=== PATIENT | female | born 1950 | race Caucasian/White ===

== ENCOUNTER → 2018-03-07 01:20 | Outpatient (CLI) | payer MEDICARE, OTHER, SELFPAY ==
[2018-03-07 08:33] LABS: Cholesterol 263 mg/dL (50-200); HDL Cholesterol 55 mg/dL (40-60); LDL CHOLESTEROL 180 mg/dL (<100); Triglyceride 152 mg/dL (30-150)
[2018-03-07 08:54] LABS: Vitamin D 25 Total 33.5 ng/ml (30-100)
== END ==
PROVIDERS: PCP Internal Medicine; Visit Provider Obstetrics & Gynecology
DX: R73.09 Other abnormal glucose (principal); E78.00 Pure hypercholesterolemia, unspecified; M85.88 Other specified disorders of bone density and structure, other site; Z91.89 Other specified personal risk factors, not elsewhere classified
CPT/HCPCS: 36415; 80061; 82306; 83721; 83036

== ENCOUNTER → 2018-03-08 08:45 | Outpatient (CLI) | payer MEDICARE, OTHER, SELFPAY | PROVIDERS: PCP Internal Medicine; Visit Provider Student in an Organized Health Care Education/Training Program | DX: M67.912 Unspecified disorder of synovium and tendon, left shoulder (principal); T84.84XA Pain due to internal orthopedic prosthetic devices, implants and grafts, initial encounter; M75.102 Unspecified rotator cuff tear or rupture of left shoulder, not specified as traumatic | CPT/HCPCS: 99214 ==

== ENCOUNTER → 2018-03-14 00:44 | Outpatient (CLI) | payer MEDICARE, OTHER, SELFPAY ==
--- NOTE | 2018-03-14 14:18 | DI.REPORT_ITS ---
SYMPTOM/DIAGNOSIS: SCREENING, Z12.31 MAMMOGRAM: Mammograms were interpreted according to the usual protocol including computer analysis with CAD system, tomosynthesis and C view imaging. The breast tissue is of moderate radiodensity. There is no evidence of a mass. There are no suspicious calcifications. There has been no significant interval change when compared with previous images. SUMMARY: No evidence of malignancy, Category 1-B. Yearly screening mammography is recommended. SA ASSESSMENT OF FINDINGS: Negative. Category 1. Patient will receive a letter notifying them of these results. BI-RADS category B. There are scattered areas of fibroglandular density.
== END ==
PROVIDERS: PCP Internal Medicine; Visit Provider Obstetrics & Gynecology
DX: Z12.31 Encounter for screening mammogram for malignant neoplasm of breast (principal)
CPT/HCPCS: 77063; 77067

== ENCOUNTER 2018-03-26 14:30 | Outpatient (RCR) | payer MEDICARE, OTHER, SELFPAY ==
--- NOTE | 2018-03-15 09:19 | IE_ITS ---
Date: 03/15/18 Referring: ALISHA Todd (Dr. Matos's Office) [place] Diagnosis: Rotator Cuff repair, tendonitis, strength and conditioning P.T. Diagnosis: Same SUBJECTIVE: Patrizia complains of occasional discomfort throughout the (L) proximal humerus. This is generally after aggravating it such as playing golf, particularly when hitting the ball. This usually lasts for a few days and she responds well to icing. Her recent episode lasted greater than 5 days so she got an appt with Dr. Matos's office. It then resolved after a few days. She is currently pain free. History of Present Illness: She is a 67 year old female well known to me in the past with a rotator cuff repair to her (R) shoulder and a cuff tendinopathy of her (L) shoulder. She has had some episodic (L) shoulder issues and was seen by ALISHA Todd recently and referred to PT. Pain Ratin/10 currently and when symptomatic a 3/10 Pain Location: Throughout the lateral aspect of the proximal humerus. Prior Level of Function: (I) with use of her (L) UE without pain. Previous Treatment: PT and a cuff repair to the (R) Shoulder. 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 Falls in the last year: __X__ No ____Yes - How many? ____ - (if over 2, balance SM needs to be completed) Reported hospitalizations in the last year - __X__ No ____ Yes - Dates of admission/reason: Medications: Advil PRN Quality of Life: __X__ Excellent Standardized Measures: DASH score: __14%__ OBJECTIVE: Posture: She has a mild thoracic kyphosis, protracted scapula and negative lateral shift. Observation: (behavior, atrophy, skin color, etc.) Pleasant with no abnormal pain behavior noted. Expresses some concern about her (L) shoulder pain re- occurring. Palpation: she is non tender over the ACSC joints subacromially and mild tenderness over the greater tuberosities of the humeri (L) > (R). Edema: Negative effusion, erythema or warmth ROM: Her cervical spine motion is moderately limited within an articular pattern but without pain on movement or reproduction of symptoms. Her rotation is 60* and side bending at 45 to 50*. Her shoulder motion feels good with good initiation of flexion abduction without painful arc or scapular substitution. Her flexion on the (R) is approximately 155* , abduction 145*. Her (R) thumb is at the T9 level when reaching behind her back. Her (L) shoulder motion is actively 170* with flexion and abduction. Her (L) thumb is 1 inch above her (R) when reaching behind her back. She is (R) hand dominant. AA ROM in the supine position shows full ROM of the (L) shoulder with ER at 100*. On the (R) ER is at 90* and flexion/abduction is at 145-150* with some mild end range drawing suprahumerally. Her elbow and forearm are full and painless with movement and she has some limitation with her PIP joints particularly index and middle fingers at -10 to 15*. She has soft tissue swelling and Heberden nodes throughout the distal phalanges. Joint Accessory Motion: She has hypomobility with PA glides to the thoracic spine. Strength: Tolerates good resistance to the cuff with some subtle weakness with scaption and pure abduction on the (R) greater than (L). She also has weakness for (R) forearm supination and a small lawanda deformity, negative on the (L). Special Tests: She clears with the Mendoza Izaiah Impingement maneuver. Treatment: Tx today consisted of the evaluation along with production of tx program. IE: [id number] Direct treatment time: 60 minutes Total treatment time: 60 minutes ASSESSMENT: Patient is a 67-year-old female, referred for PT services with the diagnosis of tendinopathy of her (L) shoulder. Patient presents with clinical signs and symptoms consistent with dx , as demonstrated by the following impairment level findings: some subtle weakness to the supraspinatus and infraspinatus mechanism resulting in a probable partial tear. Impairments are contributing to the following functional limitations: Intermittent (L) glenohumeral and proximal humeral discomfort after specific traumatic activities. She responds to time and icing etc.. Patient is assessed as: __X__ Low 63283 ____ Moderate 56366 ____ High 37643 complexity, based on the following: History: Intermittent (L) shoulder discomfort due to a partial cuff tear resulting in a tendinopathy. Examination: Reveals minimal functional impairment currently but when symptomatic it creates difficulty with activities using her arm at or above shoulder level. Presentation: X Stable Decision-Making: Low complexity 14 % Disability based on DASH __X__ Patient requires skilled PT intervention to remediate the above functional limitations to return to: __X__ Improve QOL Prognosis: __X__ Good G-Codes: Patient's primary functional limitation is in the category of: __X__ Carrying, moving and handling objects: [id number] Projected goal: __X__ Carrying, moving, and handling objects [id number] STG: __6__ weeks. 1. Develop an (I) scapular stabilization program and core strengthening to try to minimize re-occurrence of her (L) shoulder pain as well as trying to minimize her everyday activities. LTG: __12__ weeks. __X__ Improve QOL. PLAN: Session today consisted of the evaluation along with pt education. We will see her next week for a session or two and develop a good scap stabilization/ core strengthening program and give her the option of coming into the clinic a few times per week for a supervised program verses a HEP. She will discuss this with us next week. Thank you for this referral. Please do not hesitate to contact me with any questions or concerns regarding this patient's plan of care. ALISHA Todd please sign below if you are in agreement with this patient's plan of care,
--- NOTE | 2018-03-18 12:16 | PTTR_ITS ---
DATE: 03/18/18 SUBJECTIVE: Pt reports having no pain but noticeable weakness. Observes that she needs to use both hands to handle a jug of milk. Reports that she has limited her UE use, due to fear of recurrent pain. OBJECTIVE: Therapeutic procedures ([id number]). * X See flow sheet: Created program for bilateral UE strengthening with scapular stabilization including both open and closed chain exercises. * X Provided skilled instruction in proper exercise performance: Pt required min verbal cuing to activate lower trap, correctly position bilateral scapula. Had extreme difficulty maintaining activation. * X Provided skilled manual cues to facilitate proper muscle recruitment and/ or movement pattern: Pt required mod manual cues for proper muscle recruitment. Direct treatment time: 30 minutes Total treatment time: 30 minutes
--- NOTE | 2018-03-20 14:40 | PTTR_ITS ---
DATE: 03/20/18 SUBJECTIVE: Pt reports that her shoulders were pretty tired after last session , but not painful. Expresses an interest in progressing to [facility] here in clinic for 4-6 weeks, then graduating to home program. OBJECTIVE: Therapeutic procedures ([id number]). * X See flow sheet: Progressed pt's UE strengthening and scapular stabilization program, adding bodyblade and weights with mirror to enhance proprioceptive feedback. See flow sheet for details. * X Provided skilled instruction in proper exercise performance: Pt requires min cueing to maintain proper scapula position. Pt repeatedly questions whether she has achieved proper position. * X Provided skilled manual cues to facilitate proper muscle recruitment and/ or movement pattern: Pt requires min tactile cueing to recruit low trap, sammi. when in GH flexion as with ball vs wall exercise. * X Other: Began instructing pt in exercise setup, working towards [facility]. Pt will be seen by PT/JEWELRY FACER until she is comfortable with all exercises. Direct treatment time: 30 minutes Total treatment time: 30 minutes
--- NOTE | 2018-03-26 15:50 | PTTR_ITS ---
DATE: 03/26/18 SUBJECTIVE: Pt doing well. No increase in pain with increasing activity. OBJECTIVE: Therapeutic procedures ([id number]). * X See flow sheet: For scapular stabilization, light rotator cuff strengthening, lower trap activation and general * X Provided skilled instruction in proper exercise performance: * X Provided skilled manual cues to facilitate proper muscle recruitment and/ or movement pattern: * X Other: Instruct in equipment set up and documentation of her exercises as she will progress to [facility] next session. She understands to ask questions as they arise. Direct treatment time: 30 minutes Total treatment time: 30 minutes Cynthia Tao, [employer]
== END 2018-04-05 23:59 | disposition home or self-care (01) ==
LOC: PT 14:30
PROVIDERS: PCP Internal Medicine; Referring Provider Student in an Organized Health Care Education/Training Program; Visit Provider Student in an Organized Health Care Education/Training Program
DX: M65.812 Other synovitis and tenosynovitis, left shoulder (principal)
CPT/HCPCS: 97110; 97161

== ENCOUNTER → 2018-04-16 07:47 | Outpatient (BNVA) | payer MEDICARE, OTHER, SELFPAY | PROVIDERS: PCP Internal Medicine; Visit Provider Student in an Organized Health Care Education/Training Program | DX: T84.84XA Pain due to internal orthopedic prosthetic devices, implants and grafts, initial encounter (principal); M25.571 Pain in right ankle and joints of right foot; I10 Essential (primary) hypertension ==

== ENCOUNTER 2018-04-16 11:19 | PSDC | payer MEDICARE, OTHER, SELFPAY ==
[2018-04-16 11:51] VITALS: BP 146/92; PULSE 77; RESP 16; TEMP 36.4; O2SAT 98
--- NOTE | 2018-04-16 12:18 | W.PM.HP.N ---
Date of service: 04/16/18 Time of Service: :18 Assessment and Plan (1) Painful orthopaedic hardware: Current visit: Yes Status: Acute Painful right ankle hardware. Proceed with removal of distal right ankle screw. History of Present Illness Chief Complaint: Right Prominent Ankle Hardware Narrative: Patrizia has had previous right ankle surgery for a fracture. She has a prominent screw which gets irritated on shoe wear and with activity. There is no erythema. No pain without palpation or pressure. No numbness or tingling. PFSH Family History Mother Cerebrovascular accident Father Myocardial infarction Medical History AV heart block Benign hypertension Clostridium difficile infection Social History Smoking/Tobacco Use Status: Never Surgical History Appendectomy Pacemaker (12/20/17) Rotator Cuff Repair (05/20/15) Tonsillectomy and adenoidectomy Meds Home Medications Medication Instructions Recorded Confirmed Type finasteride [Propecia] 1 mg PO qother day 11/28/12 04/16/18 History acetaminophen [Tylenol] 1,000 mg PO PRN PRN 07/24/14 04/16/18 History lorazepam 0.25 - 0.5 tab PO HS PRN #30 tab 05/03/16 04/16/18 Clinic betamethasone, augmented 50 gm TOPICAL BID #1 script 01/26/17 04/16/18 Clinic estradiol 1 mg PO DAILY #90 tab-cap 01/26/17 04/16/18 Clinic magnesium amino acid chelate 150 mg PO BID 03/05/18 04/16/18 History vit A and D3 in cod liver oil [Cod 1 ea PO BID 03/05/18 04/16/18 History Liver Oil Softgel] cholecalciferol (vitamin D3) 400 unit PO DAILY 04/15/18 04/16/18 History [Vitamin D3] cholecalciferol (vitamin D3) PO DAILY 04/16/18 History [Vitamin D3] Allergies Allergy/AdvReac Type Severity Reaction Status Date / Time oxycodone [Oxycodone] AdvReac Mild Nausea Verified 04/16/18 11:44 meperidine AdvReac Unknown Verified 04/16/18 11:44 Exam Narrative Exam Narrative: Patrizia is well appearing. AAOx3. NAD. Heart RRR. Chest CTAB. RLE has a prominent distal screw which is marked on the skin. No surrounding erythema. No pain with ROM. SILT SP/DP/Tib.
--- NOTE | 2018-04-16 12:24 | W.PM.DSUDISC ---
Discharge Plan Disposition Patient Disposition: HOME Condition: Good Discharge Details Attending Provider: Munir Matos Primary Care Provider: Afsaneh Drake Home Meds and New Rx's Prescriptions: Continue finasteride [Propecia] 1 MG tablet 1 mg PO qother day RF: 0 lorazepam 0.5 MG tablet 0.25 - 0.5 tab PO HS PRNQty: 30 RF: 0 betamethasone, augmented 50 GM cream 50 gm Topical BID Qty: 1 RF: 3 estradiol 1 MG tablet 1 mg PO DAILY Qty: 90 RF: 3 vit A and D3 in cod liver oil [cod liver oil] 1 EACH capsule 1 ea PO BID RF: 0 magnesium amino acid chelate 100 MG tablet 150 mg PO BID RF: 0 acetaminophen [Tylenol] 325 MG tablet 1,000 mg PO PRN PRNRF: 0 cholecalciferol (vitamin D3) [Vitamin D3] 400 unit Tablet 400 unit PO DAILY RF: 0 cholecalciferol (vitamin D3) [Vitamin D3] 4,000 unit Capsule PO DAILY RF: 0 Discharge Instructions Additional Instructions: Activity: You may bear weight as tolerated. You should avoid any uneven ground or descents. Medications: You should take Ibuprofen and Tylenol for pain control. You may apply ice. Dressing: The initial dressing may be removed after 48 hours. It may then be replaced by a bandaid. Follow-up: 7-10 days Activity:: Activity as Tolerated Remove Dressings/Wound Care:: 48 hours Shower/Bathe:: 48 hours Activity:: Elevate Equipment/Supplies:: No Equipment Needed Diet:: Regular Discharge Orders Discharge Orders: Discharge Order (Routine); Ordered 04/16/18 Ordered By: Munir Matos Discharge Data Discharge Physician: Munir Matos DS: Diagnosis Discharge Diagnosis (1) Painful orthopaedic hardware: Status: Acute
[2018-04-16] MEDS: Lactated Ringers 1,000 ML 80 ML IV (12:27)
--- NOTE | 2018-04-16 13:09 | DI.RAD_ITS ---
SYMPTOM/DIAGNOSIS: HARDWARE REMOVAL C-ARM: Fluoroscopy Time: 1.5 sec 0.07 mGy Fluoroscopy was provided for Dr. Matos in the OR. Please see procedure note for details.
[2018-04-16 13:26] VITALS: BP 131/84; PULSE 72; RESP 16; TEMP 36.7; O2SAT 95
--- NOTE | 2018-04-16 17:35 | ROE_ITS ---
DATE OF PROCEDURE: April 16, 2018 PREOPERATIVE DIAGNOSIS: Painful orthopedic hardware of the right ankle. POSTOPERATIVE DIAGNOSIS: Same. SURGERY: Removal of screw from right ankle. SURGEON: Munir Matos M.D. ANESTHESIA: Monitored Anesthesia Care. ESTIMATED BLOOD LOSS: 0 COMPLICATIONS: None. DISPOSITION: The patient was awakened from anesthesia and taken to the same-day surgery area in a st able condition. INDICATION FOR PROCEDURE: Patrizia is a 67-year-old who suffered a right ankle fracture. This was repa ired with a standard 130 tubular plate over the distal fibula. She had good results with her recover y but continued to have some irritation from the most distal screw. The edge of the plate and the di stal screw were prominent. However after a long discussion with Patrizia, she felt that she was unable to modify her shoe wear any further and would like to have that distal screw removed. I discussed th e possible options of taking out the whole plate versus the screw and she desired to proceed with jus t the screw only. I reviewed the risks of the procedure to include bleeding, infection, pain, stiffn ess, damage to nerves and vessels, fracture. Despite these risks, she elected to proceed. PROCEDURE DESCRIPTION: Patrizia was greeted in the preoperative holding area. Her identity was confirm ed and the correct side was identified and marked. The consent was reviewed with the patient and sig flora. The history and physical was updated. The patient was taken back to the operating room and migue jonatan in a supine position. A bump was placed underneath her right hip. Prophylactic antibiotics in t he form of Cefazolin were given. The screw was easily palpated and marked on the skin. A time-out w as performed for safe surgery. Approximately 1 cm incision was made overlying the screw head. Deep dissection was carried down to t he screw head. Once the screw was palpated a dental pick was used to remove any remnant scar tissue from within the screw itself. The screwdriver for the 3.5 mm screw was inserted without difficulty a nd the screw was removed. An x-ray was used to confirm appropriate positioning and there has been no change in the plate positioning with removal of the screw. The wound was then thoroughly irrigated. The skin was closed with a single nylon suture. The wound was dressed with a Xeroform followed by 4x4's and a Tegaderm. Prior to the closure the wound was injected with 0.5% Bupivacaine. She was tr ansferred to the same-day surgery area in a stable condition.
== END 2018-04-16 13:49 | disposition home or self-care (01) ==
PROVIDERS: PCP Internal Medicine; Visit Provider Student in an Organized Health Care Education/Training Program
PROC: (CPT 20680; principal; 2018-04-16 13:00)
DX: T84.84XA Pain due to internal orthopedic prosthetic devices, implants and grafts, initial encounter (principal); M25.571 Pain in right ankle and joints of right foot; I10 Essential (primary) hypertension
CPT/HCPCS: 20680; 76000; NC; J2405

== ENCOUNTER → 2018-04-24 13:18 | Outpatient (BNVA) | payer MEDICARE, OTHER, SELFPAY | PROVIDERS: PCP Internal Medicine; Referring Provider Internal Medicine; Visit Provider Student in an Organized Health Care Education/Training Program | DX: T84.84XD Pain due to internal orthopedic prosthetic devices, implants and grafts, subsequent encounter (principal) ==

== ENCOUNTER 2019-05-02 01:25 | Outpatient (CLI) | payer MEDICARE, OTHER, SELFPAY ==
--- NOTE | 2019-05-02 08:47 | DI.MAMMO_ITS ---
EXAM: MAMMO SCREENING CLINICAL HISTORY: hx breast lump, screening z12.31. TECHNIQUE: Mammograms were interpreted according to the usual protocol including computer analysis w [employer] CAD system, tomosynthesis and C-view imaging. FINDINGS: The breasts are of moderate density with fairly symmetrical distribution of fibroglandular tissue. N o dominant mass or clumped microcalcification is identified in either breast. A grouping of benign-ap pearing acinar microcalcifications and macrocalcifications are seen in the central superior portion o f the right breast, unchanged from previous examination of March 2018. No other significant change is seen in either breast. IMPRESSION: No specific evidence of malignancy this time. Routine screening examinations are suggested at yearly intervals in this age group according to the ACS ACR guidelines. Category 1. Breast density category B. BI-RADS Cat 1 - Negative. Breast Density - Category B - Scattered areas of fibroglandular density.
== END 2019-05-02 01:45 ==
PROVIDERS: PCP Internal Medicine; Visit Provider Obstetrics & Gynecology
DX: Z12.31 Encounter for screening mammogram for malignant neoplasm of breast (principal); R92.0 Mammographic microcalcification found on diagnostic imaging of breast
CPT/HCPCS: 77063; 77067

== ENCOUNTER 2019-05-08 01:21 | Outpatient (CLI) | payer MEDICARE, OTHER, SELFPAY ==
[2019-05-08 11:56] LABS: Anion Gap 8.4 mmol/L (3-11); BUN 18 mg/dL (7-18); CO2 28.6 mmol/L (21.0-32.0); CREATININE 0.77 mg/dL (0.55-1.02); Calcium 8.8 mg/dL (8.5-10.1); Chloride 104 mmol/L (98-107); Glucose 98 mg/dL (70-100); Potassium 4.5 mmol/L (3.5-5.1); Sodium 141 mmol/L (136-145)
== END 2019-05-08 01:41 ==
PROVIDERS: PCP Internal Medicine; Visit Provider Internal Medicine
DX: I10 Essential (primary) hypertension (principal)
CPT/HCPCS: 36415; 80048

== ENCOUNTER 2019-12-22 10:51 | Outpatient (CLI) | payer MEDICARE, SELFPAY ==
--- NOTE | 2019-12-22 08:30 | DI.RAD_ITS ---
EXAM: XR ANKLE RT COMPLETE CLINICAL HISTORY: R ankle pain. TECHNIQUE: 2D digital imaging was performed. COMPARISON: CR RIGHT ANKLE COMPLETE from 02/14/2018 FINDINGS: BONES: No acute fracture or dislocation is present. There are side plates and screws seen in the dis lewis fibula. Since the prior examination, the most inferior screw has been removed. The orthopedic h ardware appears intact. JOINTS: The ankle mortise is normally aligned. SOFT TISSUE: Normal. IMPRESSION: No acute abnormality. DATA REPOSITORY: RADIATION DOSE DELIVERED:
== END 2019-12-22 11:11 ==
PROVIDERS: PCP Internal Medicine; Referring Provider Internal Medicine; Visit Provider Student in an Organized Health Care Education/Training Program
DX: M25.571 Pain in right ankle and joints of right foot (principal); Z47.89 Encounter for other orthopedic aftercare; M76.811 Anterior tibial syndrome, right leg; M70.61 Trochanteric bursitis, right hip; M15.2 Bouchard's nodes (with arthropathy); M79.645 Pain in left finger(s)
CPT/HCPCS: 20600; 99214; 73610; J1030

== ENCOUNTER 2020-04-29 01:50 | Outpatient (CLI) | payer MEDICARE, SELFPAY ==
--- NOTE | 2020-04-29 | DI.DEXA_ITS ---
EXAM: XR DEXA BONE DENSITY W/WO TIFFANIE CLINICAL HISTORY: OSTEOPENIA,M85.88 TECHNIQUE: COMPARISON: Comparison examination is 04/09/2018. FINDINGS: Lateral Spine Image: Unremarkable. No compression deformities identified. Left hip: Total T-Score: -0.6. This compares with -0.4 on the prior examination. Total Z-Score: 0.9 T- and Z-scores: Within normal limits. Lumbar Spine: Total T-Score: -0.3. This compares with -0.2 on the prior examination. Total Z-Score: 1.9 T- and Z-scores: Within normal limits. IMPRESSION: No evidence of osteoporosis in the lumbar spine or left hip.
== END 2020-04-29 02:10 ==
PROVIDERS: PCP Internal Medicine; Visit Provider Obstetrics & Gynecology
DX: M85.88 Other specified disorders of bone density and structure, other site (principal)
CPT/HCPCS: 77080

== ENCOUNTER 2020-05-03 13:51 | Outpatient (CLI) | payer MEDICARE, SELFPAY ==
--- NOTE | 2020-05-03 13:45 | DI.RAD_ITS ---
EXAM: XR KNEE LT 4V AP,LAT,NAILA,PAT CLINICAL HISTORY: left knee pain TECHNIQUE: 2D digital imaging was performed. COMPARISON: No exams were available for comparison FINDINGS: There is mild spurring at the articular aspect of the patella. The patellofemoral joint space is wel l mildly narrowed.. There may be slight narrowing of the lateral femoral tibial joint. No joint eff usion is seen. IMPRESSION: Mild degenerative changes.
== END 2020-05-03 14:11 ==
PROVIDERS: PCP Internal Medicine; Referring Provider Internal Medicine; Visit Provider Student in an Organized Health Care Education/Training Program
DX: M17.12 Unilateral primary osteoarthritis, left knee (principal); M25.562 Pain in left knee; M23.92 Unspecified internal derangement of left knee; I10 Essential (primary) hypertension
CPT/HCPCS: 99213; 73564

== ENCOUNTER 2020-05-10 00:50 | Outpatient (CLI) | payer MEDICARE, SELFPAY ==
--- NOTE | 2020-05-10 16:03 | DI.MAMMO_ITS ---
EXAM: MG MAMMO SCREENING CLINICAL HISTORY: screening TECHNIQUE: Mammograms were interpreted according to the usual protocol including computer analysis w [employer] CAD system, tomosynthesis and C-view imaging. COMPARISON: FINDINGS: The breasts are of moderate density with fairly symmetrical distribution of fibroglandular tissue. N o dominant mass or clumped microcalcification is identified in either breast. There are numerous sma ll areas of nodularity bilaterally, the findings are unchanged in appearance in comparison with previ ous examinations including April 2019. IMPRESSION: No specific evidence of malignancy at this time. Routine screening examinations are suggested at yea rly intervals in this age group according to the ACS ACR guidelines. BI-RADS Category 1 - Negative Breast Density - Category B - Scattered areas of fibroglandular density
== END 2020-05-10 01:10 ==
PROVIDERS: PCP Internal Medicine; Visit Provider Nurse Practitioner Family
DX: Z12.31 Encounter for screening mammogram for malignant neoplasm of breast (principal)
CPT/HCPCS: 77063; 77067

== ENCOUNTER → 2021-05-09 10:45 | Outpatient (BNVA) | payer MEDICARE, SELFPAY | PROVIDERS: PCP Internal Medicine; Referring Provider Internal Medicine; Visit Provider Student in an Organized Health Care Education/Training Program | DX: M17.12 Unilateral primary osteoarthritis, left knee (principal) | CPT/HCPCS: 20610; J7325 ==

== ENCOUNTER 2022-02-28 10:35 | Outpatient (CLI) | payer MEDICARE, SELFPAY ==
--- NOTE | 2022-02-28 10:15 | DI.RAD_ITS ---
Exam(s) XR SHOULDER LT COMPLETE 2+V EXAM: XR SHOULDER LT COMPLETE 2+V CLINICAL HISTORY: pain in shoulder. TECHNIQUE: 2D digital imaging was performed of the left shoulder. Two images were obtained. AP and axillary views were obtained. COMPARISON: No exams were available for comparison FINDINGS: BONES: No acute fracture is present. No bony destructive lesion is seen. JOINTS: No dislocation present. SOFT TISSUE: The patient's cardiac battery pack overlies the scapula. IMPRESSION: No acute abnormality. DATA REPOSITORY: RADIATION DOSE DELIVERED:
== END 2022-02-28 10:36 | disposition home or self-care (01) ==
LOC: DIORS 10:36
PROVIDERS: Visit Provider Physician Assistant Surgical
DX: M75.22 Bicipital tendinitis, left shoulder
CPT/HCPCS: 99203; 99214; 73030